=== PATIENT | female | born 1945 | race Two or more races ===

== ENCOUNTER → 2020-11-22 | Outpatient (BNVA) | payer MEDICARE, MEDICAID, SELFPAY | END | disposition home or self-care (01) | PROVIDERS: PCP Family Medicine; Visit Provider Urology ==

== ENCOUNTER → 2024-11-14 | Outpatient (CLI) | payer MEDICARE, MEDICAID, SELFPAY ==
[2024-11-14 16:12] LABS: Basophils # (Auto) 0.1 Thou/mm3 (0.0-0.2); Basophils % (Auto) 1 % (0-2.5); Eosinophils # (Auto) 0.2 Thou/mm3 (0.0-0.5); Eosinophils % (Auto) 3 % (0-10); Hematocrit 38.2 % (36.0-46.0); Hemoglobin 13.2 g/dL (12.0-16.0); Immature Granulocytes % (Auto) 0 % (0-0); Immature Granulocytes Auto 0.02 Thou/mm3 (0.00-0.00); Lymphocytes # (Auto) 2.4 Thou/mm3 (1.0-4.8); Lymphocytes % (Auto) 26 % (10-50); Mean Corpuscular HGB Conc 34.6 g/dl (31.0-37.0); Mean Corpuscular Hemoglobin 29.2 pg (25.0-35.0); Mean Corpuscular Volume 85 fL (80-100); Monocytes # (Auto) 0.5 Thou/mm3 (0.0-0.8); Monocytes % (Auto) 6 % (0-12); Neutrophils # (Auto) 6.1 Thou/mm3 (1.8-7.7); Neutrophils % (Auto) 65 % (37-80); Nucleated Red Blood Cell % 0 /100 WBC (0); Platelet Count 128 Thou/mm3 (140-440); RDW Standard Deviation 47.1 fL (36.4-46.3); Red Blood Count 4.52 Miln/mm3 (4.00-5.20); White Blood Count 9.4 Thou/mm3 (3.6-11.0)
[2024-11-14 16:43] LABS: Alanine Aminotransferase 35 U/L (10-49); Albumin, Serum 4.7 gm/dL (3.4-4.8); Albumin/Globulin Ratio 1.6 (1.2-2.2); Alkaline Phosphatase 109 U/L (46-116); Anion Gap 12 (7-16); Aspartate Amino Transferase 32 U/L (0-34); BUN/Creatinine Ratio 17 Ratio (12-20); Bilirubin,Total 0.4 mg/dL (0.3-1.2); Blood Urea Nitrogen 26 mg/dL (9-23); Calcium 9.7 mg/dL (8.3-10.6); Calcium (Corrected) 9.7 mg/dL (8.5-10.1); Carbon Dioxide 25.5 mMol/L (20.0-31.0); Chloride 95 mMol/L (98-107); Creatinine (Component) 1.5 mg/dL (0.6-1.3); Globulin 2.9 gm/dL (2.3-3.5); Glucose 341 mg/dL (74-106); Osmolality,Calculated 282 (275-295); Potassium 4.6 mMol/L (3.4-5.1); Sodium 132 mMol/L (136-145); Total Protein 7.6 gm/dL (5.7-8.2); eGFR 35 See Note
== END | disposition home or self-care (01) ==
LOC: SCTO 15:34
PROVIDERS: PCP Family Medicine; Referring Provider Nurse Practitioner Family; Visit Provider Nurse Practitioner Family
DX: C64.2 Malignant neoplasm of left kidney, except renal pelvis (principal); D69.3 Immune thrombocytopenic purpura
CPT/HCPCS: 36415; 80053; 85025

== ENCOUNTER 2024-11-22 12:07 | Outpatient (RCR) | payer MEDICARE, MEDICAID, SELFPAY | END 2024-12-21 23:59 | disposition home or self-care (01) | LOC: SCTC 12:07 | PROVIDERS: PCP Family Medicine; Referring Provider Family Medicine; Visit Provider Nurse Practitioner Family | DX: Z08 Encounter for follow-up examination after completed treatment for malignant neoplasm (principal); Z85.528 Personal history of other malignant neoplasm of kidney; Z90.5 Acquired absence of kidney; D69.6 Thrombocytopenia, unspecified; E11.65 Type 2 diabetes mellitus with hyperglycemia; E11.22 Type 2 diabetes mellitus with diabetic chronic kidney disease; N18.9 Chronic kidney disease, unspecified; Z79.84 Long term (current) use of oral hypoglycemic drugs | CPT/HCPCS: 99212; G0463 ==

== ENCOUNTER → 2025-05-10 | Outpatient (CLI) | payer MEDICARE, MEDICAID, SELFPAY ==
[2025-05-10 10:49] LABS: Basophils # (Auto) 0.1 Thou/mm3 (0.0-0.2); Basophils % (Auto) 1 % (0-2.5); Eosinophils # (Auto) 0.1 Thou/mm3 (0.0-0.5); Eosinophils % (Auto) 2 % (0-10); Hematocrit 42.3 % (36.0-46.0); Hemoglobin 13.7 g/dL (12.0-16.0); Immature Granulocytes Auto 0.01 Thou/mm3 (0.00-0.00); Lymphocytes # (Auto) 1.7 Thou/mm3 (1.0-4.8); Lymphocytes % (Auto) 25 % (10-50); Mean Corpuscular HGB Conc 32.4 g/dl (31.0-37.0); Mean Corpuscular Hemoglobin 29.0 pg (25.0-35.0); Mean Corpuscular Volume 89 fL (80-100); Monocytes # (Auto) 0.3 Thou/mm3 (0.0-0.8); Monocytes % (Auto) 5 % (0-12); Neutrophils # (Auto) 4.4 Thou/mm3 (1.8-7.7); Neutrophils % (Auto) 67 % (37-80); Nucleated Red Blood Cell # 0.00 Thou/mm3 (0.00-0.00); Nucleated Red Blood Cell % 0 /100 WBC (0); RDW Standard Deviation 42.8 fL (36.4-46.3); Red Blood Count 4.73 Miln/mm3 (4.00-5.20); White Blood Count 6.6 Thou/mm3 (3.6-11.0)
[2025-05-10 11:12] LABS: Alanine Aminotransferase 20 U/L (10-49); Albumin, Serum 4.7 gm/dL (3.4-4.8); Albumin/Globulin Ratio 1.5 (1.2-2.2); Alkaline Phosphatase 96 U/L (46-116); Anion Gap 10 (7-16); Aspartate Amino Transferase 24 U/L (0-34); BUN/Creatinine Ratio 14 Ratio (12-20); Bilirubin,Total 0.6 mg/dL (0.3-1.2); Blood Urea Nitrogen 14 mg/dL (9-23); Calcium 9.9 mg/dL (8.3-10.6); Calcium (Corrected) 9.9 mg/dL (8.5-10.1); Carbon Dioxide 30.0 mMol/L (20.0-31.0); Chloride 100 mMol/L (98-107); Creatinine (Component) 1.0 mg/dL (0.6-1.3); Globulin 3.2 gm/dL (2.3-3.5); Glucose 192 mg/dL (74-106); Osmolality,Calculated 284 (275-295); Potassium 4.8 mMol/L (3.4-5.1); Sodium 140 mMol/L (136-145); Total Protein 7.9 gm/dL (5.7-8.2); eGFR 57 See Note
[2025-05-10 12:58] LABS: Platelet Count 68 Thou/mm3 (140-440)
[2025-05-10 12:59] LABS: Slide Review Platelets confirmed
== END | disposition home or self-care (01) ==
LOC: COPL 09:37
PROVIDERS: PCP Family Medicine; Referring Provider Nurse Practitioner Family; Visit Provider Nurse Practitioner Family
DX: C64.2 Malignant neoplasm of left kidney, except renal pelvis (principal); D69.3 Immune thrombocytopenic purpura
CPT/HCPCS: 36415; 80053; 85025